=== PATIENT | female | born 1985 ===

== ENCOUNTER 2017-10-07 19:41 | Emergency (ER) | payer SELFPAY ==
[2017-10-07 21:12] VITALS: RESP 18; O2SAT 99
[2017-10-08] MEDS ORDERED: Iohexol 240 (50 ml) PO ONE (00:41)
--- NOTE | 2017-10-08 00:44 | ED PDOC ---
HPI: Abdomen Time Seen by Provider: 10/08/17 00:05 Chief Complaint (Nursing): Back Pain Chief Complaint (Provider): abdominal pain History Per: Patient, Nutritional Services Cook History/Exam Limitations: no limitations Onset/Duration Of Symptoms: Days (1) Current Symptoms Are (Timing): Still Present Location Of Pain/Discomfort: RLQ Additional Complaint(s): 32 y/o female presents with right lower abdominal pain x 1 day. Denies fever, nausea/vomiting, changes in bowel movements, urinary symptoms, vaginal bleeding/ discharge. Past Medical History Reviewed: Historical Data, Nursing Documentation, Vital Signs Vital Signs: Last Vital Signs Temp 98.9 F 10/07/17 21:07 Pulse 82 10/07/17 21:07 Resp 18 10/07/17 21:07 BP 141/93 H 10/07/17 21:07 Pulse Ox 99 10/08/17 04:30 - Medical History PMH: No Chronic Diseases Denies: Diabetes, Hepatitis, HIV, HTN, Chronic Kidney Disease, Seizures, Sexually Transmitted Disease - Surgical History Other surgeries: tubal ligation, breast augmentation - Family History Family History: States: Unknown Family Hx - Home Medications Home Medications: Ambulatory Orders Medication Instructions Recorded Naproxen [Naprosyn] 500 mg PO Q12 PRN #20 tablet 10/08/17 - Allergies Allergies/Adverse Reactions: Allergies Allergy/AdvReac Type Severity Reaction Status Date / Time No Known Allergies Allergy Verified 12/17/14 19:22 Review of Systems ROS Statement: Except As Marked, All Systems Reviewed And Found Negative Gastrointestinal: Positive for: Abdominal Pain Physical Exam - Reviewed Nursing Documentation Reviewed: Yes Vital Signs Reviewed: Yes - Physical Exam Appears: Positive for: Well, Non-toxic, No Acute Distress Head Exam: Positive for: ATRAUMATIC, NORMAL INSPECTION, NORMOCEPHALIC Skin: Positive for: Normal Color Eye Exam: Positive for: Normal appearance ENT: Positive for: Normal ENT Inspection Cardiovascular/Chest: Positive for: Regular Rate, Rhythm Respiratory: Positive for: Normal Breath Sounds Gastrointestinal/Abdominal: Positive for: Bowel Sounds, Soft, Tenderness (rlq). Negative for: Rebound Back: Positive for: Normal Inspection Extremity: Positive for: Normal ROM Neurologic/Psych: Positive for: Alert, Oriented - Laboratory Results Result Diagrams: 10/08/17 01:20 10/08/17 01:20 - ECG O2 Sat by Pulse Oximetry: 99 - Progress ED Course And Treament: labs, CT, IV toradol EXAM: CT Abdomen and Pelvis With Intravenous Contrast CLINICAL HISTORY: 32 years old, female; Pain; Other: Pelvic; Additional info: Rlq pain TECHNIQUE: Axial computed tomography images of the abdomen and pelvis with intravenous contrast. All CT scans at this facility use one or more dose reduction techniques, viz.: automated exposure control; ma/kV adjustment per patient size (including targeted exams where dose is matched to indication; i.e. head); or iterative reconstruction technique. Coronal and sagittal reformatted images were created and reviewed. CONTRAST: 95 mL of omnipaque 300 administered intravenously. COMPARISON: No relevant prior studies available. FINDINGS: Lung bases: Unremarkable. No mass. No consolidation. ABDOMEN: Liver: Unremarkable. No mass. Gallbladder and bile ducts: Unremarkable. No calcified stones. No ductal dilation. Pancreas: Unremarkable. No mass. No ductal dilation. Spleen: Unremarkable. No splenomegaly. Adrenals: Unremarkable. No mass. Kidneys and ureters: Unremarkable. No solid mass. No hydronephrosis. Stomach and bowel: Unremarkable. No obstruction. No mucosal thickening. Appendix: No findings to suggest acute appendicitis. Normal appendix. PELVIS: Bladder: Unremarkable. No mass. Reproductive: There is a low density cystic structure in the RIGHT adnexa measuring 2.4 cm, probably an ovarian cyst. ABDOMEN and PELVIS: Intraperitoneal space: There is a small amount of free pelvic fluid present. No free air. Bones/joints: No acute fracture. No dislocation. Soft tissues: Partially visualized RIGHT breast implant. Vasculature: Unremarkable. No abdominal aortic aneurysm. Lymph nodes: Unremarkable. No enlarged lymph nodes. IMPRESSION: No evidence of acute appendicitis. Probable RIGHT ovarian cyst. Small pelvic free fluid. Pelvic ultrasound could be obtained if clinically indicated EXAM: US Pelvis, Transvaginal CLINICAL HISTORY: 32 years old, female; Pain; Pelvic pain; Additional info: Right pelvis pain TECHNIQUE: Real-time transvaginal pelvic ultrasound (complete) with image documentation. Transvaginal imaging was used for better evaluation of the endometrium and adnexa. COMPARISON: CT - ABD PELVIS PO IV CONTRAST 2017-10-08 03:15 FINDINGS: Uterus/cervix: Unremarkable measuring 8.3 x 5.1 x 5.5 cm. The uterus is normal in contour and echotexture. Normal endometrial stripe thickness measuring 8 mm. No myometrial mass. Right ovary: The RIGHT ovary measures 3.5 x 2.2 x 1.9 cm. There is a complex parovarian mass with posterior acoustic enhancement probably a hemorrhagic cyst demonstrating peripheral flow. Solid mass considered less likely, however, not completely excluded. This measures 2.4 x 2.3 x 2 cm Left ovary: Unremarkable measuring 2.9 x 1.6 x 1.6 cm. No mass. Duplex assessment demonstrates normal flow in both ovaries. Free fluid: Small to moderate amount of pelvic cul-de-sac free fluid with internal echoes. IMPRESSION: Complex RIGHT adnexal/paraovarian mass and complex pelvic free fluid. Diagnostic considerations include ruptured hemorrhagic parovarian cyst. Solid mass is considered less likely. Recommend initial ultrasound follow-up in 6-12 weeks. No evidence of ovarian torsion. Patient educated on findings, discharged with rx Naproxen. Advised Director Project Management follow up 2-3 days. Return precautions given. Disposition - Clinical Impression Clinical Impression: Right ovarian cyst - Patient ED Disposition Is Patient to be Admitted: No Counseled Patient/Family Regarding: Studies Performed, Diagnosis, Need For Followup, Rx Given - Disposition [facility] Disposition: Routine/Home Disposition Time: 04:45 Condition: IMPROVED Prescriptions: Naproxen [Naprosyn] 500 mg PO Q12 PRN #20 tablet PRN Reason: Pain, Moderate (4-7) Instructions: Ovarian Cysts Print Language: YAKUT
[2017-10-08] MEDS ORDERED: Iohexol 240 (50 ml) ONE (01:03)
[2017-10-08 01:24] LABS: BASO # 0.1 K/uL (0.0-0.2); BASO % 1.1 % (0.0-2.0); EOS # 0.4 K/uL (0.0-0.7); HEMOGLOBIN 12.9 g/dL (12.0-16.0); LYMPH # 3.7 K/uL (1.0-4.3); LYMPH % 34.9 % (20.0-40.0); MEAN CORPUSCULAR HEMOGLOBIN 30.7 pg (27.0-31.0); MEAN CORPUSCULAR HGB CONC 34.2 g/dL (33.0-37.0); MEAN PLATELET VOLUME 8.4 fl (7.2-11.7); MONO # 0.8 K/uL (0.0-0.8); MONO % 7.9 % (0.0-10.0); NEUT # 5.6 K/uL (1.8-7.0); NEUT % 52.1 % (50.0-75.0); RBC 4.19 Mil/uL (3.80-5.20); RED CELL DISTRIBUTION WIDTH 13.3 % (11.5-14.5); WHITE BLOOD COUNT 10.7 K/uL (4.8-10.8)
[2017-10-08 01:31] LABS: ALB/GLOB RATIO 1.2 (1.0-2.1); ALBUMIN 3.8 g/dL (3.5-5.0); ALT/SGPT 20 U/L (9-52); AST/SGOT 19 U/L (14-36); BLOOD UREA NITROGEN 20 mg/dl (7-17); CALCIUM 8.8 mg/dL (8.4-10.2); GFR AFRICAN-AMERICAN > 60; GFR NON-AFRICAN AMERICAN > 60
[2017-10-08] MEDS ORDERED: Iohexol 300 50 ML ONE ×2 (02:59→03:01)
--- NOTE | 2017-10-08 04:25 | CT ---
EXAM: CT Abdomen and Pelvis With Intravenous Contrast CLINICAL HISTORY: 32 years old, female; Pain; Other: Pelvic; Additional info: Rlq pain TECHNIQUE: Axial computed tomography images of the abdomen and pelvis with intravenous contrast. All CT scans at this facility use one or more dose reduction techniques, viz.: automated exposure control; ma/kV adjustment per patient size (including targeted exams where dose is matched to indication; i.e. head); or iterative reconstruction technique. Coronal and sagittal reformatted images were created and reviewed. CONTRAST: 95 mL of omnipaque 300 administered intravenously. COMPARISON: No relevant prior studies available. FINDINGS: Lung bases: Unremarkable. No mass. No consolidation. ABDOMEN: Liver: Unremarkable. No mass. Gallbladder and bile ducts: Unremarkable. No calcified stones. No ductal dilation. Pancreas: Unremarkable. No mass. No ductal dilation. Spleen: Unremarkable. No splenomegaly. Adrenals: Unremarkable. No mass. Kidneys and ureters: Unremarkable. No solid mass. No hydronephrosis. Stomach and bowel: Unremarkable. No obstruction. No mucosal thickening. Appendix: No findings to suggest acute appendicitis. Normal appendix. PELVIS: Bladder: Unremarkable. No mass. Reproductive: There is a low density cystic structure in the RIGHT adnexa measuring 2.4 cm, probably an ovarian cyst. ABDOMEN and PELVIS: Intraperitoneal space: There is a small amount of free pelvic fluid present. No free air. Bones/joints: No acute fracture. No dislocation. Soft tissues: Partially visualized RIGHT breast implant. Vasculature: Unremarkable. No abdominal aortic aneurysm. Lymph nodes: Unremarkable. No enlarged lymph nodes. IMPRESSION: No evidence of acute appendicitis. Probable RIGHT ovarian cyst. Small pelvic free fluid. Pelvic ultrasound could be obtained if clinically indicated.
[2017-10-08 04:55] VITALS: BP 132/90; PULSE 75; TEMP 98.5
--- NOTE | 2017-10-08 10:58 | US ---
HISTORY: Right-sided pelvic pain, 1 day duration. LMP 09/29/2017. Relevant surgical history: Tubal ligation. COMPARISON: October 08, 2017. CT abdomen and pelvis. TECHNIQUE: Transvaginal only. Real -time technique with 2D, duplex and color Doppler FINDINGS: UTERUS: Measures 5.1 x 5.5 x 8.3 cm. Normal in size and appearance. No fibroid or other mass lesion seen. ENDOMETRIUM: Measures 8.2 mm in diameter. Unremarkable. CERVIX: No cervical abnormality identified. RIGHT OVARY: Measures 1.9 x 2.2 x 3.5 cm. No solid mass. Normal flow. Complex cysts, presumed hemorrhagic measuring 2.3 x 2.4 x 2.0 cm. LEFT OVARY: Measures 1.6 x 1.6 x 2.9 cm. No solid mass. Normal flow. FREE FLUID: Trace free fluid identified in the pelvis/cul de sac. OTHER FINDINGS: None. IMPRESSION: Right adnexa: Complex cyst/ presumed hemorrhagic etiology.This corresponds to findings on recent CT scan. Otherwise unremarkable study. Concordant results (preliminary interpretation) provided by [facility]. Procedure Completed: 04:02 Preliminary ([facility]) Report: Dictated and Authenticated: 04:39 Final Interpretation: 10:52
== END 2017-10-08 04:55 | disposition home or self-care (01) ==
LOC: H.ER 19:41
DX: N83.201 Unspecified ovarian cyst, right side (principal)
CPT/HCPCS: 74177; 76830; 80053; 81025; 85025; 99283; J1885; Q9966; Q9967

== ENCOUNTER 2017-12-24 04:53 | Emergency (ER) | payer OTHER ==
[2017-12-24 05:26] VITALS: BP 131/87; RESP 16; TEMP 98.6; O2SAT 98
[2017-12-24] MEDS ORDERED: DiphenhydrAMINE 50 mg/ml Inj IV STA (05:37)
[2017-12-24] MEDS ORDERED: Sodium Chloride 0.9% 1,000 ML IV STA (05:37)
[2017-12-24] MEDS ORDERED: Famotidine 20mg/50ml Premix IVPB STA (05:37)
[2017-12-24] MEDS ORDERED: Famotidine 20mg/50ml 40 MG/100 ML BAG IVPB ONE (05:42)
--- NOTE | 2017-12-24 05:53 | ED PDOC ---
HPI: General Adult Time Seen by Provider: 12/24/17 05:18 Chief Complaint (Nursing): Allergic Reaction Chief Complaint (Provider): Allergic Reaction History Per: Patient History/Exam Limitations: no limitations Onset/Duration Of Symptoms: Days (x4) Additional Complaint(s): Annalee Sousa is a 32 y/o female with no known past medical history who presents to the ED with complaints of an allergic reaction with associated pruritic rash, periorbital swelling, and throat tightness, onset x4 days ago. Patient states that x8 days ago she took ibuprofen for her menstrual cramps but symptoms did not start until 4 days later on Saturday (x4 days ago.) She also states that these symptoms improved on their own. Later she took Naprosyn which resulted in a more severe reaction prompting the ED visit. PMD: None provided Past Medical History Reviewed: Historical Data, Nursing Documentation, Vital Signs Vital Signs: Last Vital Signs Temp 98.6 F 12/24/17 06:52 Pulse 89 12/24/17 06:52 Resp 16 12/24/17 06:52 BP 131/87 12/24/17 06:52 Pulse Ox 98 12/24/17 06:52 - Medical History PMH: Denies: Diabetes, Hepatitis, HIV, HTN, Chronic Kidney Disease, Seizures, Sexually Transmitted Disease - Surgical History Surgical History: No Surg Hx - Family History Family History: States: Unknown Family Hx - Social History Current smoker - smoking cessation education provided: No Alcohol: None Drugs: Denies - Home Medications Home Medications: Ambulatory Orders Medication Instructions Recorded Naproxen [Naprosyn] 500 mg PO Q12 PRN #20 tablet 10/08/17 Cetirizine HCl [Zyrtec] 10 mg PO QAM #10 capsule 12/24/17 Famotidine [Pepcid] 20 mg PO Q12 #14 tab 12/24/17 Methylprednisolone [Medrol Dosepak] 4 mg PO ASDIR #1 pkg 12/24/17 - Allergies Allergies/Adverse Reactions: Allergies Allergy/AdvReac Type Severity Reaction Status Date / Time ibuprofen Allergy URTICARIA Verified 12/24/17 05:27 naproxen [From Naprosyn] Allergy URTICARIA Verified 12/24/17 05:27 Review of Systems ROS Statement: Except As Marked, All Systems Reviewed And Found Negative ENT: Positive for: Other (Throat tightness) Skin: Positive for: Rash (pruritic), Other (hives) Physical Exam - Reviewed Nursing Documentation Reviewed: Yes Vital Signs Reviewed: Yes - Physical Exam Appears: Positive for: Uncomfortable (mildly) Skin: Positive for: Rash (diffuse urticarial) Eye Exam: Positive for: Periorbital swelling Neck: Positive for: Normal, Painless ROM Cardiovascular/Chest: Positive for: Regular Rate, Rhythm. Negative for: Murmur Respiratory: Positive for: Normal Breath Sounds. Negative for: Respiratory Distress Gastrointestinal/Abdominal: Positive for: Normal Exam, Soft. Negative for: Tenderness Back: Positive for: Normal Inspection. Negative for: L CVA Tenderness, R CVA Tenderness, Other (Midline tenderness) Extremity: Positive for: Normal ROM. Negative for: Pedal Edema, Deformity Neurologic/Psych: Positive for: Alert, Oriented. Negative for: Motor/Sensory Deficits - ECG O2 Sat by Pulse Oximetry: 98 (RA) Medical Decision Making Medical Decision Making: Time: 05:37 Initial Impression: 32 y/o female with acute allergic reaction. Initial Plan: * Urine * Benadryl 50 mg IV * Sodium Chloride 0.9% 1,000 ml IV 1,000 mls/hr * Pepcid 20 mg/50ml Premix 40 mg IVPB * SoluMedrol 125 mg IVP Time: 06:52 --Patient reports marked improvement in symptoms. She is stable for discharge. Take prescriptions for Zyrtec, Pepcid and methylprednisolone as directed. Diagnosis is allergic reaction. Scribe Attestation: Documented by Bassam Aburto, acting as a scribe for Duke Johnson MD Provider Scribe Attestation: All medical record entries made by the Scribe were at my direction and personally dictated by me. I have reviewed the chart and agree that the record accurately reflects my personal performance of the history, physical exam, medical decision making, and the department course for this patient. I have also personally directed, reviewed, and agree with the discharge instructions and disposition. Disposition - Clinical Impression Clinical Impression: Allergic reaction - Patient ED Disposition Is Patient to be Admitted: No - Disposition Referrals: [facility] [Outside] Thomas Whitt MD [Staff Provider] - Disposition: Routine/Home Disposition Time: 06:52 Condition: STABLE Additional Instructions: ANNALEE SOUSA, thank you for letting us take care of you today. Your provider was Duke Johnson MD and you were treated for ALLERGY, RASH , EYE SWELLING/IRRITATION. The emergency medical care you received today was directed at your acute symptoms. If you were prescribed any medication, please fill it and take as directed. It may take several days for your symptoms to resolve. Return to the Emergency Department if your symptoms worsen, do not improve, or if you have any other problems. Please contact your doctor or call one of the physicians/clinics you have been referred to that are listed on the Patient Visit Information form that is included in your discharge packet. Bring any paperwork you were given at discharge with you along with any medications you are taking to your follow up visit. Our treatment cannot replace ongoing medical care by a primary care provider outside of the emergency department. Thank you for allowing the [facility] team to be part of your care today. If you had an X-Ray or CT scan: A Radiologist will review the ED reading if any change in treatment is needed we will contact you. If you had a blood, urine, or wound culture: It will take several days for the results, if any change in treatment is needed we will contact you. If you had an STI test: It will take 48 hours for the results. Please call after 1 week if you have not heard back. Prescriptions: Cetirizine HCl [Zyrtec] 10 mg PO QAM #10 capsule Famotidine [Pepcid] 20 mg PO Q12 #14 tab Methylprednisolone [Medrol Dosepak] 4 mg PO ASDIR #1 pkg Instructions: Drug Allergy Forms: [employer] (Salvadorean) Print Language: GREENLANDIC
[2017-12-24 07:04] VITALS: PULSE 89
== END 2017-12-24 06:52 | disposition home or self-care (01) ==
LOC: H.ER 04:53
DX: T78.40XA Allergy, unspecified, initial encounter (principal)
CPT/HCPCS: 96374; 99283; J1200; J2930; J7030